=== PATIENT | male | born 1950 | race Caucasian/White ===

== ENCOUNTER 2017-08-11 12:50 | Inpatient (IN) | payer OTHER, MEDICAID, MEDICARE ==
[2017-08-11 19:36] LABS: ADD MAN DIFF? NO
[2017-08-11 19:39] LABS: WHITE BLOOD COUNT 12.8 10^3/ul (4.8-10.8)
[2017-08-11 19:39] LABS: BASOPHIL # 0.1 10^3/ul (0.0-0.1); BASOPHILS % 0.4 % (0.0-2.0); EOSINOPHILS # 0.1 10^3/ul (0.0-0.5); EOSINOPHILS % 0.5 % (0.0-7.0); HEMATOCRIT 44.5 % (42.0-52.0); HEMOGLOBIN 16.3 g/dl (14.0-18.0); LYMPHOCYTES # 2.3 10^3/ul (0.8-2.9); LYMPHOCYTES % 17.6 % (15.0-51.0); MEAN CORPUSCULAR HEMOGLOBIN 31.5 pg (29.0-33.0); MEAN CORPUSCULAR HGB CONC 36.6 g/dl (32.0-37.0); MEAN CORPUSCULAR VOLUME 86.1 fl (82.0-101.0); MONOCYTE # 1.2 10^3/ul (0.3-0.9); NEUTROPHIL # 9.3 10^3/ul (1.6-7.5); NEUTROPHILS % 72.2 % (39.0-77.0); PLATELET COUNT 186 10^3/UL (140-415); RED BLOOD COUNT 5.17 10^6/ul (4.70-6.10); RED CELL DISTRIBUTION WIDTH 13.1 % (11.5-14.5)
[2017-08-11] MEDS: ASPIRIN 325 MG TAB PO (19:46)
[2017-08-11] MEDS: NITROGLYCERIN 2% 1 GM OINT PKT TD (19:48)
[2017-08-11 19:58] LABS: ALANINE AMINOTRANSFERASE 49 IU/L (13-69); ALBUMIN/GLOBULIN RATIO 1.31; ALKALINE PHOSPHATASE 163 IU/L (42-121); ANION GAP 18 (8-16); ASPARTATE AMINO TRANSFERASE 28 IU/L (15-46); BILIRUBIN,INDIRECT 0.2 mg/dl (0-1.1); BILIRUBIN,TOTAL 0.2 mg/dl (0.2-1.3); BLOOD UREA NITROGEN 10 mg/dl (7-20); CALCIUM 9.5 mg/dl (8.4-10.2); CARBON DIOXIDE 26 mmol/L (21-31); CHLORIDE 103 mmol/L (97-110); CREATININE 0.74 mg/dl (0.61-1.24); GLUCOSE 160 mg/dl (70-220); POTASSIUM 3.7 mmol/L (3.5-5.1); SODIUM 143 mmol/L (135-144); TOTAL PROTEIN 8.8 g/dl (6.1-8.1)
[2017-08-11 20:01] LABS: INR 0.93; PROTIME 12.6 Sec (11.9-14.9)
[2017-08-11 20:02] LABS: PARTIAL THROMBOPLASTIN TIME 28.1 Sec (25.0-35.0)
[2017-08-11 20:57] LABS: TROPONIN-I < 0.012 ng/ml (0.00-0.12)
[2017-08-11] MEDS ORDERED: SOD CHLORIDE 0.45% 1,000 ML IV (21:47)
[2017-08-11] MEDS ORDERED: SOD CHLORIDE 0.9% 1,000 ML IV (21:55)
[2017-08-11] MEDS ORDERED: LORAZEPAM 2 MG INJ IV (22:00)
[2017-08-11] MEDS ORDERED: DOCUSATE SODIUM 100 MG CAP PO (22:00)
[2017-08-11] MEDS ORDERED: ONDANSETRON 4 MG INJ IV (22:00)
[2017-08-11] MEDS ORDERED: ACETAMINOPHEN 325 MG TAB PO (22:00)
[2017-08-11] MEDS ORDERED: NACL 0.9% 3 ML SYG IV (22:00)
[2017-08-11 22:29] LABS: ADD UMIC NO; UR ASCORBIC ACID NEGATIVE (NEGATIVE); UR BILIRUBIN (Dip) NEGATIVE (NEGATIVE); UR BLOOD (Dip) NEGATIVE (NEGATIVE); UR CLARITY CLEAR (CLEAR); UR COLOR YELLOW (YELLOW); UR GLUCOSE (Dip) 2+ mg/dL (NEGATIVE); UR KETONES (Dip) NEGATIVE (NEGATIVE); UR LEUKOCYTE ESTERASE (Dip) NEGATIVE Leu/ul (NEGATIVE); UR NITRITE (Dip) NEGATIVE (NEGATIVE); UR SPECIFIC GRAVITY (Dip) 1.012 (1.003-1.030); UR TOTAL PROTEIN (Dip) NEGATIVE (NEGATIVE); UR UROBILINOGEN (Dip) NEGATIVE (NEGATIVE)
[2017-08-11] MEDS ORDERED: DEXTROSE 50% 50 ML SYRINGE IV ×2 (22:30)
[2017-08-11] MEDS ORDERED: GLUCAGON 1 MG INJ IM (22:30)
[2017-08-11] MEDS ORDERED: HYDROCODONE/APAP (7.5/325) TAB PO (22:30)
[2017-08-11] MEDS ORDERED: GLUCOSE GEL 15 GRAM TUBE BUCCAL (22:30)
[2017-08-11] MEDS ORDERED: GLUCOSE GEL 15 GRAM TUBE PO ×2 (22:30)
[2017-08-11] MEDS ORDERED: ALBUTEROL/IPRATROPIUM (NEB) 3 ML AMP HHN (22:30)
[2017-08-11] MEDS ORDERED: hydrALAzine 20 MG INJ IV (22:30)
[2017-08-11 22:45] LABS: CREATINE KINASE 51 IU/L (23-200)
[2017-08-11 22:59] LABS: CK INDEX 1.2
[2017-08-11 23:03] LABS: CK-MB 0.62 ng/ml (0.0-2.4); TROPONIN-I < 0.012 ng/ml (0.00-0.12)
[2017-08-11 23:08] LABS: CHOLESTEROL 190 mg/dl (100-200)
[2017-08-11 23:08] LABS: CHOL/HDL RATIO 5.7 RATIO; HDL CHOLESTEROL 33 mg/dl (30-78); LDL CHOLESTEROL,CALCULATED 70 mg/dl; TRIGLYCERIDES 434 mg/dl (0-149)
[2017-08-12] MEDS: DEXTROSE 5%-0.45% NACL 1,000 ML IV (00:10)
[2017-08-12] MEDS: ZOLPIDEM 5 MG TAB PO (00:21)
[2017-08-12] MEDS: ONDANSETRON 4 MG INJ IV (00:24)
[2017-08-12] MEDS: morphine 2 MG INJ IV (00:29)
[2017-08-12] MEDS: ACCU-CHEK XX (02:03)
[2017-08-12 05:31] LABS: ADD MAN DIFF? NO
[2017-08-12 05:35] LABS: WHITE BLOOD COUNT 12.1 10^3/ul (4.8-10.8)
[2017-08-12 05:35] LABS: ABNORMAL IP MESSAGE 1; BASOPHILS % 0.3 % (0.0-2.0); EOSINOPHILS # 0.1 10^3/ul (0.0-0.5); EOSINOPHILS % 0.5 % (0.0-7.0); HEMATOCRIT 41.4 % (42.0-52.0); HEMOGLOBIN 14.5 g/dl (14.0-18.0); LYMPHOCYTES # 2.5 10^3/ul (0.8-2.9); LYMPHOCYTES % 20.2 % (15.0-51.0); MEAN CORPUSCULAR HEMOGLOBIN 30.9 pg (29.0-33.0); MEAN CORPUSCULAR VOLUME 88.1 fl (82.0-101.0); MEAN PLATELET VOLUME 11.4 fl (7.4-10.4); MONOCYTE # 1.5 10^3/ul (0.3-0.9); MONOCYTES % 12.5 % (0.0-11.0); NEUTROPHILS % 66.2 % (39.0-77.0); PLATELET COUNT 180 10^3/UL (140-415); POSITIVE DIFF @See below; RED CELL DISTRIBUTION WIDTH 12.5 % (11.5-14.5)
[2017-08-12 05:49] LABS: CREATINE KINASE 45 IU/L (23-200)
[2017-08-12 05:57] LABS: ALANINE AMINOTRANSFERASE 38 IU/L (13-69); ALBUMIN 3.9 g/dl (3.3-4.9); ALBUMIN/GLOBULIN RATIO 1.21; ALKALINE PHOSPHATASE 122 IU/L (42-121); ANION GAP 13 (8-16); ASPARTATE AMINO TRANSFERASE 21 IU/L (15-46); BILIRUBIN,INDIRECT 0.5 mg/dl (0-1.1); BILIRUBIN,TOTAL 0.5 mg/dl (0.2-1.3); BLOOD UREA NITROGEN 11 mg/dl (7-20); CALCIUM 9.2 mg/dl (8.4-10.2); CARBON DIOXIDE 29 mmol/L (21-31); CHLORIDE 100 mmol/L (97-110); CREATININE 0.86 mg/dl (0.61-1.24); GLUCOSE 206 mg/dl (70-220); MAGNESIUM 1.6 mg/dl (1.7-2.5); POTASSIUM 4.1 mmol/L (3.5-5.1); SODIUM 138 mmol/L (135-144); TOTAL PROTEIN 7.1 g/dl (6.1-8.1)
[2017-08-12 06:01] LABS: CK INDEX 1.2
[2017-08-12 06:07] LABS: CK-MB 0.55 ng/ml (0.0-2.4); TROPONIN-I < 0.012 ng/ml (0.00-0.12)
[2017-08-12] MEDS: INSULIN ASPART [NOVOLOG] 3 ML PEN SC ×2 (07:54→13:08)
[2017-08-12] MEDS ORDERED: METOPROLOL 25 MG TAB PO (09:00)
[2017-08-12] MEDS: CALCIUM CARBONATE 500 MG CHEW TAB PO ×3 (09:23→17:52)
[2017-08-12] MEDS: LISINOPRIL 20 MG TAB PO (09:23)
[2017-08-12] MEDS: METOPROLOL 25 MG TAB PO (09:25)
[2017-08-12 09:29] LABS: AMPHETAMINE/METHAMPHETAMINE Negative (NEGATIVE); BARBITURATES Negative (NEGATIVE); BENZODIAZEPINES Negative (NEGATIVE); CANNABINOIDS Negative (NEGATIVE); COCAINE Negative (NEGATIVE); OPIATES Negative (NEGATIVE)
[2017-08-12] MEDS: ACETAMINOPHEN 325 MG TAB PO (09:29)
[2017-08-12] MEDS: ENOXAPARIN 40 MG/0.4 ML SYG SC (09:29)
[2017-08-12] MEDS: MAGNESIUM SULFATE 2 GM/50 ML 50 ML IVPB (09:30)
[2017-08-12] MEDS: SOD CHLORIDE 0.9% 100 ML (12:53)
[2017-08-12] MEDS: IOHEXOL 100 ML (12:54)
[2017-08-12] MEDS: IOHEXOL 350MG/ML 50 ML BTL (12:54)
[2017-08-12] MEDS: metFORMIN 500 MG TAB PO (17:52)
[2017-08-12] MEDS ORDERED: ATORVASTATIN 10 MG TAB PO (21:00)
[2017-08-13] MEDS ORDERED: LISINOPRIL 10 MG TAB PO (09:00)
[2017-08-13] MEDS ORDERED: ASPIRIN 81 MG TAB PO (09:00)
== END 2017-08-12 18:55 | disposition home or self-care (01) | DRG 313 ==
LOC: E/R 12:50 → MS3 08-12 15:00
DX: R07.89 Other chest pain (principal); I10 Essential (primary) hypertension; E11.9 Type 2 diabetes mellitus without complications; L91.8 Other hypertrophic disorders of the skin; E78.5 Hyperlipidemia, unspecified
CPT/HCPCS: 36415; 71045; 71275; 80053; 80061; 80307; 81003; 82550; 82553; 82962; 83735; 84484; 85025; 85610; 85730; 87086; 93005; 93306; 99285-25